=== PATIENT | male | born 1990 | race Caucasian/White ===

== ENCOUNTER → 2016-09-23 | Outpatient (CLI) | payer OTHER ==
[2016-07-03 00:20] VITALS: BP 138/83
--- NOTE | 2016-09-23 13:56 | RAD ---
Indication:] Seen. Assess for potential abdominal mass Grayscale images of the abdomen were obtained. Comparison none Liver:The visualized liver appears normal. Gallbladder:Normal. The common bile duct diameter of approximately 3 mm is normal Spleen:Normal Pancreas:Normal Kidneys:Normal Abdominal aorta and IVC:Normal Ancillary findings:Benign Impression:Normal abdominal ultrasound exam
== END | disposition home or self-care (01) ==
LOC: US 12:20
PROVIDERS: ATTEND Urology
DX: I48.1 Persistent atrial fibrillation (principal)
CPT/HCPCS: 76700